=== PATIENT | male | born 1960 | race Hispanic/Latino ===

== ENCOUNTER 2019-03-30 08:49 | Emergency (ER) | payer OTHER ==
[~2019-03-30] VITALS: Ht 172.7 cm; Wt 108.9 kg
--- OUTSIDE RECORDS SUMMARY | 2019-03-30 08:52 | XMS REPORT ---
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 Allergies, Adverse Reactions, Alerts Allergy Name Allergy Type Status Severity Reaction(s) Onset Date Inactive Date Treating Clinician Comments No Known Allergies DA Active U 2012-06-07 00:00:00 Medications This patient has no known medications. Encounters Start Date/Time End Date/Time Encounter Type Admission Type Attending Clinicians Care Facility Care Department Encounter ID 2018-12-21 00:00:00 2018-12-21 00:00:00 Outpatient [facility] [id number] 2018-12-08 00:00:00 2018-12-08 00:00:00 Outpatient [facility] [id number] 2018-12-06 00:00:00 2018-12-06 00:00:00 Outpatient [facility] [id number] 2018-12-04 00:00:00 2018-12-04 00:00:00 Outpatient [facility] [id number] 2018-11-22 00:00:00 2018-11-22 00:00:00 Outpatient [facility] [id number] 00:00:00 2018 00:00:00 Outpatient [facility] [id number] 2018-10-26 18:04:02 2018-10-26 18:04:02 Emergency [facility] [id number] 2018-10-23 11:00:03 2018-10-23 11:00:03 Outpatient [facility] [id number] 2018-10-23 00:00:00 2018-10-23 00:00:00 Outpatient [facility] [id number] 2018-10-20 00:00:00 2018-10-20 00:00:00 Outpatient [facility] [id number] 2018-10-19 14:45:29 2018-10-19 14:45:29 Outpatient [facility] [id number] 2018-09-28 00:00:00 2018-09-28 00:00:00 Outpatient [facility] [id number] 2018-09-13 00:00:00 2018-09-13 00:00:00 Outpatient [facility] [id number] 2018-09-06 12:59:01 2018-09-06 12:59:01 Outpatient [facility] [id number] 2018-08-10 00:00:00 2018-08-10 00:00:00 Outpatient [facility] [id number] 2018-07-27 00:00:00 2018-07-27 00:00:00 Outpatient [facility] [id number] 2018-07-06 00:00:00 2018-07-06 00:00:00 Outpatient [facility] [id number] 2018-07-04 11:26:25 2018-07-04 11:26:25 Outpatient [facility] [id number] 2018-07-04 00:00:00 2018-07-04 00:00:00 Outpatient [facility] [id number] 2018-06-30 00:00:00 2018-06-30 00:00:00 Outpatient [facility] [id number] 2018-05-30 11:47:13 2018-05-30 11:47:13 Outpatient [facility] [id number] 2018-05-30 00:00:00 2018-05-30 00:00:00 Outpatient [facility] [id number] 2018-05-26 00:00:00 2018-05-26 00:00:00 Outpatient [facility] [id number] 2018-05-16 11:31:31 2018-05-16 11:31:31 Outpatient [facility] [id number] 2018-05-12 08:34:16 2018-05-12 08:34:16 Emergency [facility] [id number] 2018-05-01 11:38:31 2018-05-01 11:38:31 Outpatient [facility] [id number] 2018-04-27 08:56:19 2018-04-27 08:56:19 Outpatient [facility] [id number] 2018-04-17 10:19:21 2018-04-17 10:19:21 Outpatient [facility] [id number] 2018-04-17 09:34:00 2018-04-17 09:34:00 Outpatient [facility] [id number] 2018-04-17 00:00:00 2018-04-17 00:00:00 Outpatient [facility] [id number] 2018-04-14 08:03:08 2018-04-14 08:03:08 Outpatient [facility] [id number] 2018-04-11 13:00:56 2018-04-11 13:00:56 Outpatient [facility] [id number] 2018-04-11 00:00:00 2018-04-11 00:00:00 Outpatient [facility] [id number] 2018-04-06 09:28:50 2018-04-06 09:28:50 Outpatient [facility] [id number] 2018-03-07 13:45:36 2018-03-07 13:45:36 Outpatient [facility] [id number] 2018-03-01 00:00:00 2018-03-01 00:00:00 Outpatient [facility] [id number] 2018-02-14 00:00:00 2018-02-14 00:00:00 Outpatient [facility] [id number] 2018-02-08 00:00:00 2018-02-08 00:00:00 Outpatient [facility] [id number] 2018-02-07 00:00:00 2018-02-07 00:00:00 Outpatient [facility] [id number] 2018-02-07 00:00:00 2018-02-07 00:00:00 Outpatient [facility] [id number] 2018-02-01 00:00:00 2018-02-01 00:00:00 Outpatient [facility] [id number] 2018-02-01 00:00:00 2018-02-01 00:00:00 Outpatient [facility] [id number] 2018-01-26 00:00:00 2018-01-26 00:00:00 Outpatient [facility] [id number] 2018-01-26 00:00:00 2018-01-26 00:00:00 Outpatient [facility] [id number] 2018-01-11 00:00:00 2018-01-11 00:00:00 Outpatient [facility] [id number] 2017-12-27 00:00:00 2017-12-27 00:00:00 Outpatient [facility] [id number] 2017-12-22 00:00:00 2017-12-22 00:00:00 Outpatient [facility] [id number] 2017-12-13 08:37:07 2017-12-13 08:37:07 Outpatient [facility] [id number] 2017-12-13 00:00:00 2017-12-13 00:00:00 Outpatient [facility] [id number] 2017-11-29 14:01:29 2017-11-29 14:01:29 Outpatient [facility] [id number] 2017-09-27 00:00:00 2017-09-27 00:00:00 Outpatient [facility] [id number] 2017-08-25 09:01:21 2017-08-25 09:01:21 Outpatient [facility] [id number] 2017-08-23 00:00:00 2017-08-23 00:00:00 Outpatient [facility] [id number] 2017-08-12 00:00:00 2017-08-12 00:00:00 Outpatient [facility] [id number] 2017-07-20 00:00:00 2017-07-20 00:00:00 Outpatient [facility] [id number] 2017-07-19 00:00:00 2017-07-19 00:00:00 Outpatient [facility] [id number] 2017-07-15 00:00:00 2017-07-15 00:00:00 Outpatient [facility] [id number] 2017-06-16 00:00:00 2017-06-16 00:00:00 Outpatient [facility] [id number] 2017-04-21 00:00:00 2017-04-21 00:00:00 Outpatient [facility] [id number] 2017-04-05 12:59:47 2017-04-05 12:59:47 Outpatient [facility] [id number] 2017-04-04 00:00:00 2017-04-04 00:00:00 Outpatient [facility] [id number] 2017-03-28 14:08:29 2017-03-28 14:08:29 Outpatient [facility] [id number] 2017-02-01 00:00:00 2017-02-01 00:00:00 Outpatient [facility] [id number] 2016-11-30 13:10:27 2016-11-30 13:10:27 Outpatient [facility] [id number] 2016-11-27 13:50:50 2016-11-27 13:50:50 Emergency [facility] [id number] 2016-11-24 14:37:41 2016-11-24 14:37:41 Emergency [facility] [id number] 2016-11-24 09:21:50 2016-11-24 09:21:50 Emergency [facility] [id number] 2016-10-28 00:00:00 2016-10-28 00:00:00 Outpatient [facility] [id number] 2016-10-21 00:00:00 2016-10-21 00:00:00 Outpatient [facility] [id number] 2016-08-10 00:00:00 2016-08-10 00:00:00 Outpatient [facility] [id number] 2016-07-27 11:02:24 2016-07-27 11:02:24 Outpatient [facility] [id number] 2016-07-27 08:53:23 2016-07-27 08:53:23 Outpatient [facility] [id number] Results Test Description Test Time Test Comments Text Results Atomic Results Result Comments - XR CHEST 2 V 2019-03-26 16:32:00 Name: GINETTE RIVAS [facility] : 1960 Age/S:58 /M [address] [facility] Unit#:[id number] [place] [address] Phys: Allen Blancas Dis Date: PHONE #: [phone] Status: PRE ER FAX #: [phone] Exam Date: 03/26/2019 Reason: left lower chest pain w/ cough EXAMS: CPT CODE: [id number] XR CHEST 2 V [id number] EXAM: Chest X-ray, 2 views; CLINICAL HISTORY: Left lower chest pain and cough; FINDINGS: The lungs are clear, no infiltrates, no edema; no effusions; no pneumothorax; normal cardiomediastinal silhouette. IMPRESSION: Normal chest x-ray. Location code: [facility] at 1632 Reported and signed by: Rene Paris M.D. CC: Allen Blancas Technologist: Marcela Watson Trnscrpt Data: 03/26/2019 (1062) Kristyn Orig Print D/T: S: 03/26/2019 (3194) PAGE 1 Signed Report
--- NOTE | 2019-03-30 09:55 | Diagnostic Imaging Report ---
Chest, 2 views, 03/30/2019. History: Cough. Comparison: None available. Findings: The cardiomediastinal silhouette and pulmonary vasculature are within normal limits. The lungs are clear without evidence of consolidation or pleural effusion. Mild degenerative changes are noted in the thoracic spine. There are no acute osseous or soft tissue abnormalities. Impression: No acute cardiopulmonary abnormality. Signed by: Fernanod Clay on 03/30/2019 9:52 AM
[2019-03-30 10:18] VITALS: BP 143/83
== END 2019-03-30 10:18 | disposition home or self-care (01) ==
LOC: ER 08:49
DX: R05 Cough (principal); J20.9 Acute bronchitis, unspecified
CPT/HCPCS: 71046; 87400; 99283

== ENCOUNTER 2019-05-25 12:35 | Emergency (ER) | payer OTHER ==
[~2019-05-25] VITALS: Ht 172.7 cm; Wt 108.9 kg
== END 2019-05-25 12:58 | disposition home or self-care (01) ==
LOC: ER 12:35
DX: L02.414 Cutaneous abscess of left upper limb (principal)
CPT/HCPCS: 99283

== ENCOUNTER 2019-08-24 10:07 | Emergency (ER) | payer OTHER ==
[~2019-08-24] VITALS: Ht 172.7 cm; Wt 108.9 kg
[2019-08-24] MEDS ORDERED: CEFTRIAXONE SOD 1 GM VIAL IM ONE (10:30)
[2019-08-24] MEDS ORDERED: LIDOCAINE HCL 1% LOCAL INJ 20 ML VIAL ONE (10:35)
[2019-08-24] MEDS ORDERED: AZITHROMYCIN250 MG PO (10:37)
[2019-08-24] MEDS ORDERED: THERAFLU COLD1 EAC4 PO (10:37)
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
--- NOTE | 2019-08-24 10:56 | Diagnostic Imaging Report ---
EXAMINATION: CXR 2 VIEW - HOPD INDICATION: Cough COMPARISON: Chest radiograph 03/30/2019 FINDINGS: LINES/TUBES:None LUNGS:The lungs are moderately inflated. Mild bibasilar patchy opacities. PLEURA:No pleural effusion or pneumothorax. MEDIASTINUM:The cardiomediastinal silhouette appears normal in size and shape. BONES/SOFT TISSUES:No acute osseous injury. ABDOMEN:No free air under the diaphragm. IMPRESSION: Mild bibasilar patchy opacities may represent subsegmental atelectasis however viral pneumonitis should be clinically excluded. Signed by: Beth Diehl MD on 08/24/2019 10:53 AM
--- NOTE | 2019-08-25 07:00 | NUR ---
Informed by Dr. Lai of positive results
== END 2019-08-24 11:05 | disposition home or self-care (01) ==
LOC: FSED 10:11
DX: U07.1 COVID-19 (principal); R50.9 Fever, unspecified; R05 Cough; J40 Bronchitis, not specified as acute or chronic; J06.9 Acute upper respiratory infection, unspecified; E11.9 Type 2 diabetes mellitus without complications
CPT/HCPCS: 71046; 87635; 96372; 99283; J0696; J2001; 93005